=== PATIENT | female | born 1995 ===

== ENCOUNTER 2023-11-09 14:12 | Emergency (ER) | payer BC, SELFPAY ==
[2023-11-09 14:25] VITALS: BP 128/82; PULSE 100; RESP 16; TEMP 36.4; O2SAT 97
[2023-11-09] MEDS: SODIUM CHLORIDE 0.9% IV 1,000 ML 999 ML IV CONT (16:40)
[2023-11-09] MEDS: Please add drug allergy info to patient profile. 1 EACH XX (16:44)
[2023-11-09 16:50] LABS: Basophils Absolute Auto 0.1 K/mm3 (0.0-0.1); Basophils Percent Auto 0.6 % (0.2-1.2); Eosinophils Absolute Auto 0.6 K/mm3 (0-0.3); Eosinophils Percent Auto 7.1 % (0-4.4); Hematocrit 37.1 % (37.0-47.0); Immature Granulocyte Absolute 0.02 K/mm3 (0.00-0.031); Immature Granulocyte Percent A 0.2 % (0-0.5); Lymphocytes Percent Auto 24.6 % (18.3-44.2); Mean Corpuscular HGB Conc 32.3 g/dl (32-36); Mean Corpuscular Hemoglobin 28.9 pg (26-34); Mean Corpuscular Volume 89.4 fl (80-100); Mean Platelet Volume 9.9 fl (7.4-10.4); Monocytes Absolute Auto 0.7 K/mm3 (0.1-0.6); Neutrophils Absolute Auto 4.8 K/mm3 (1.3-6.7); Neutrophils Percent Auto 59.5 % (45.5-73.1); Platelet Count Result 272 k/mm3 (150-375); Red Blood Count 4.15 M/mm3 (4.2-5.4); Red Cell Distribution Width 12.4 % (11.5-14.5); White Blood Count 8.1 K/mm3 (4.5-10.0)
[2023-11-09 17:00] LABS: Alanine Aminotransferase 57 U/L (6-35); Albumin Level 4.2 g/dL (3.5-5.1); Alkaline Phosphatase 77 U/L (38-126); Anion Gap 5 mmol/L (8-16); Aspartate Amino Transferase 34 U/L (14-36); Bilirubin,Total 0.3 mg/dL (0.2-1.3); Blood Urea Nitrogen 13 mg/dL (7-17); Calcium 9.4 mg/dL (8.4-10.2); Carbon Dioxide 26 mmol/L (22-30); Chloride 107 mmol/L (98-107); Estimated CRCL calculation 128 ml/min; Estimated Glomerular Filt Rate > 60; Glucose 90 mg/dL (65-110); Potassium 3.7 mmol/L (3.4-5.0); Sodium 138 mmol/L (137-145)
--- NOTE | 2023-11-09 17:32 | ED.WEAKNESS ---
HPI - Weakness General Chief complaint: Weakness Stated complaint: low BP Time Seen by Provider: 11/09/23 16:02 History of Present Illness HPI Narrative: Patient is a 28-year-old female who presents ER with lightheadedness and weakness. Ongoing since last night. Gets dizzy when she stands up. Reports normal eating and drinking. No nausea or vomiting. No diarrhea. Denies fevers chills or sweats. 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 Symptoms are better if she lays down and naps. Related Data Allergies Allergy/AdvReac Type Severity Reaction Status Date / Time No Known Allergies Allergy Verified 11/09/23 16:43 Review of Systems Review of Systems: All systems reviewed & are unremarkable except as noted in HPI and below Constitutional: Constitutional: Denies chills, Reports fatigue and Denies fever(s) ENT: Reports system reviewed and no additional complaints, except as documented Cardiovascular: Cardiovascular: Reports no additional cardiovascular complaints Respiratory: Respiratory: Reports no additional respiratory complaints Gastrointestinal: Gastrointestinal: Reports no additional gastrointestinal complaints Integumentary/Breasts: Skin/Breast: Reports system reviewed and no additional complaints, except as docu PMFSH Past Medical History Medical History (Updated 11/09/23 @ 18:07 by Gallito Reyes MD) Healthy female adult Surgical History Surgical History (Updated 11/09/23 @ 17:34 by Gallito Reyes MD) No history of previous surgery Exam Narrative: GENERAL: Well-appearing, well-nourished, and in no acute distress. HEAD: Normocephalic, atraumatic. EYES: PERRL and EOMI. ENT: Mucous membranes moist. CHEST: Clear to auscultation. No respiratory distress. HEART: Regular rate and rhythm. Normal peripheral pulses. ABDOMEN: Soft, nontender, nondistended. EXTREMITIES: Normal range of motion. No edema. SKIN: Warm, dry, no rash. NEURO: Alert and oriented x3. PSYCH: Normal mood and affect. Course Vital Signs Vital signs: Vital Signs Temperature 97.5 F L 11/09/23 14:25 Pulse Rate 100 11/09/23 14:25 Respiratory Rate 16 11/09/23 14:25 Blood Pressure 128/82 11/09/23 14:25 Pulse Oximetry 97 11/09/23 14:25 Oxygen Delivery Room Air 11/09/23 14:25 Temperature 97.5 F L 11/09/23 14:25 Pulse Rate 100 11/09/23 14:25 Respiratory Rate 16 11/09/23 14:25 Blood Pressure 128/82 11/09/23 14:25 Pulse Oximetry 97 11/09/23 14:25 Oxygen Delivery Room Air 11/09/23 14:25 MDM - Weakness Lab Data 11/09/23 16:42 11/09/23 16:42 Labs: Lab Results 11/09/23 11/09/23 11/09/23 Range/Units 16:42 16:52 17:34 WBC 8.1 (4.5-10.0) K/mm3 RBC 4.15 L (4.2-5.4) M/mm3 Hgb 12.0 (12.0-15.0) g/dL Hct 37.1 (37.0-47.0) % MCV 89.4 (80-100) fl MCH 28.9 (26-34) pg MCHC 32.3 (32-36) g/dl RDW 12.4 (11.5-14.5) % Plt Count 272 (150-375) k/mm3 MPV 9.9 (7.4-10.4) fl Immature Gran % (Auto) 0.2 (0-0.5) % Neut % (Auto) 59.5 (45.5-73.1) % Lymph % (Auto) 24.6 (18.3-44.2) % [place] % (Auto) 8.0 (2.6-8.5) % Eos % (Auto) 7.1 H (0-4.4) % Baso % (Auto) 0.6 (0.2-1.2) % Lymph # (Auto) 2.00 (0.9-3.2) K/mm3 [place] # (Auto) 0.7 H (0.1-0.6) K/mm3 Eos # (Auto) 0.6 H (0-0.3) K/mm3 Baso # (Auto) 0.1 (0.0-0.1) K/mm3 Abs Immat Gran (auto) 0.02 (0.00-0.031) K/mm3 Absolute Neuts (auto) 4.8 (1.3-6.7) K/mm3 Absolute Nucleated RBC 0.0 (0.0-0.012) K/mm3 Nucleated RBC % 0.0 (0.0-0.2) % Sodium 138 (137-145) mmol/L Potassium 3.7 (3.4-5.0) mmol/L Chloride 107 (98-107) mmol/L Carbon Dioxide 26 (22-30) mmol/L Anion Gap 5 L (8-16) mmol/L BUN 13 (7-17) mg/dL Creatinine 0.50 L (0.7-1.0) mg/dL Estim Creat Clear Calc 128 ml/min Estimated GFR > 60 (59 - ) Glucose 90 (65-110) mg/dL Calcium
[2023-11-09 17:51] LABS: Appearance Urine Clear (Clear); Bacteria Urine None Seen /hpf; Bilirubin Urine Negative (Negative); Blood Urine Negative (Negative); Color Urine Yellow (Yellow); Glucose Urine UA Negative (Negative); Ketones Urine Negative (Negative); Leukocyte Esterase Ur 2+ LEU/UL (Negative); Nitrate Urine Negative (Negative); Non Pathogenic Casts 0-2; Protein Urine Negative (Negative); RBC Urine 0-2 /hpf (0-2); Specific Grav Ur 1.024 (1.001-1.035); Squamous Epithelial Cell Urine Few /hpf (Few); Urobilinogen Urine 0.2 mg/dL (<2.0); pH Urine 6.5 (5.0-9.0)
[2023-11-09 17:53] LABS: Add Urine Microscopic? YES
[2023-11-09 17:57] LABS: Influenza A QL RT-PCR Negative (Negative); Influenza B QL RT-PCR Negative (Negative); RSV RNA, RT-PCR Negative (Negative); SARS-CoV-2 RNA PCR Negative (Negative)
[2023-11-09 18:24] VITALS: BP 128/64; PULSE 78; RESP 16; O2SAT 99
== END 2023-11-09 18:24 | disposition home or self-care (01) ==
PROVIDERS: Emergency Provider Emergency Medicine
DX: N39.0 Urinary tract infection, site not specified (principal); Z20.822 Contact with and (suspected) exposure to COVID-19
CPT/HCPCS: 36415; 80053; 81001; 81025; 85025; 87086; 87637; 96360; 99283; J7030

== ENCOUNTER 2024-04-27 14:45 | Outpatient (RCR) | payer BC, SELFPAY ==
[2024-04-27 16:29] LABS: Hematocrit 32.8 % (37.0-47.0); Hemoglobin 11.3 g/dL (12.0-15.0)
[2024-04-27 16:41] LABS: Glucose 1 Hour PP 50gm Dose 148 mg/dL
[2024-04-27 18:33] LABS: Rapid Plasma Reagin Non-Reactive (NonReactive)
[2024-04-27 22:06] LABS: HIV 1/2 Ab P24 Ag Result Negative (Negative)
[2024-04-28] MEDS: RHO(D) IMMUNE GLOBULIN 300 MCG/2 ML SYRINGE IM (17:31)
== END 2024-07-26 23:59 | disposition home or self-care (01) ==
LOC: ANHLAB 14:45
PROVIDERS: Visit Provider Obstetrics & Gynecology
DX: Z36.89 Encounter for other specified antenatal screening (principal); Z29.13 Encounter for prophylactic Rho(D) immune globulin
CPT/HCPCS: 36415; 82947; 85014; 85018; 85461; 86592; 86703; 86850; 86900; 86901; 90384; 96372; G0432; J2790

== ENCOUNTER 2024-07-24 05:54 | Inpatient (IN) | payer BC, SELFPAY ==
[2024-07-24] VITALS (67 sets, daily range): BP systolic 81–140; BP diastolic 48–122; PULSE 53–109; RESP 18; TEMP 36.4–37.2; O2SAT 82–99; BMI 29.7
[2024-07-24 06:44] LABS: Basophils Percent Auto 0.4 % (0.2-1.2); Eosinophils Absolute Auto 0.2 K/mm3 (0-0.3); Eosinophils Percent Auto 3.2 % (0-4.4); Hemoglobin 12.6 g/dL (12.0-15.0); Immature Granulocyte Absolute 0.03 K/mm3 (0.00-0.031); Immature Granulocyte Percent A 0.4 % (0-0.5); Lymphocytes Absolute Auto 1.83 K/mm3 (0.9-3.2); Lymphocytes Percent Auto 25.1 % (18.3-44.2); Mean Corpuscular HGB Conc 34.1 g/dl (32-36); Mean Corpuscular Hemoglobin 31.7 pg (26-34); Mean Platelet Volume 10.8 fl (7.4-10.4); Monocytes Absolute Auto 0.4 K/mm3 (0.1-0.6); Monocytes Percent Auto 5.6 % (2.6-8.5); Neutrophils Absolute Auto 4.8 K/mm3 (1.3-6.7); Neutrophils Percent Auto 65.3 % (45.5-73.1); Platelet Count Result 258 k/mm3 (150-375); Red Blood Count 3.98 M/mm3 (4.2-5.4); Red Cell Distribution Width 13.1 % (11.5-14.5); White Blood Count 7.3 K/mm3 (4.5-10.0)
[2024-07-24] MEDS: miSOPROStol 25 MCG TABLET 50 MCG BUCCAL ×2 (06:55→12:16)
--- NOTE | 2024-07-24 07:01 | LDADM ---
This patient, Mercedes Crowell, was admitted to Labor/Delivery/Recovery 106 on 07/24/24 at 05:54. Plans for labor, pain management and were discussed with patient. Patient/family oriented to hospital policies and general routines including ID bracelet, bed and alarms, visiting hours, pain management, procedures, bathroom and other care routines, personal items, smoking policy, room service/diet and guest tray routines, infant security routines, and visiting hours. Patient/Family are encouraged to report perceived risks to care and to ask questions if they do not understand what they are told or what they should do. See [facility] for further documentation.
[2024-07-24 07:36] LABS: HIV 1/2 Ab P24 Ag Result Negative (Negative)
[2024-07-24 07:40] LABS: Hepatitis B Surface Antigen Negative (Negative)
[2024-07-24 07:41] LABS: Rapid Plasma Reagin Non-Reactive (NonReactive)
[2024-07-24] MEDS: LACTATED RINGERS 1,000 ML 125 ML IV CONT ×2 (11:49→19:05)
--- NOTE | 2024-07-24 13:09 | PM.IMHP ---
H&P: HPI History of Present Illness Date/Time: 07/24/24 08:09 Chief Complaint: elective induction of labor Narrative: Patient is a 29 year old at 39 weeks who presents for elective induction of labor. has been complicated by hx of preeclampsia in her prior . Blood pressures have been normal this . She denies strong contractions, leakage of fluid or vaginal bleeding. She reports good movement. Review of Systems Review of Systems: All systems reviewed & are unremarkable except as noted in HPI and below PMFSH Past Medical History Medical History Healthy female adult Surgical History Surgical History No history of previous surgery Family History Family History Mother Hypothyroid Hypertension Social History Social History Smoking status: Never smoker Substance use: never Do You Feel Safe in your Home?: Yes Lack of Transportation: No Lack of Food: Never True Current Housing: I Have Housing Concerned About Future Housing: No Difficulty Paying Gas/Electric Bills: No Difficulty Paying for Meds: No Currently Unemployed: No Education: Bachelor's Degree Difficulty w/ Childcare or Family Care: No Spiritual care concerns: No Meds Home Medications and Allergies Home Medications Medication Instructions Recorded Confirmed Type aspirin 81 mg tablet 81 mg PO DAILY 06/29/24 07/24/24 History vits no.126-ferrous fum 1 tablet PO DAILY 06/29/24 07/24/24 History 28 mg iron-folic acid 800 mcg tablet (Classic ) Allergies Allergy/AdvReac Type Severity Reaction Status Date / Time No Known Allergies Allergy Verified 07/24/24 06:57 Vital Signs Vital Signs - 24 hr 07/24/24 06:25 07/24/24 06:30 07/24/24 06:45 Temperature Pulse Rate 101 H 105 H 63 Blood Pressure 117/74 114/83 81/48 L Oxygen Delivery 07/24/24 07:00 07/24/24 07:30 07/24/24 07:45 Temperature Pulse Rate 90 79 76 Blood Pressure 117/67 110/78 113/74 Oxygen Delivery 07/24/24 08:00 07/24/24 08:15 07/24/24 08:30 Temperature Pulse Rate 69 85 96 Blood Pressure 110/67 110/73 109/84 Oxygen Delivery 07/24/24 08:45 07/24/24 09:00 07/24/24 10:10 Temperature 97.6 F Pulse Rate 84 69 85 Blood Pressure 118/77 117/64 107/83 Oxygen Delivery 07/24/24 12:16 07/24/24 06:59 Temperature Pulse Rate 72 Blood Pressure 109/63 Oxygen Delivery Room Air Exam Const: General: comfortable and no acute distress HENMT: Mouth: Yes moist mucous membranes Eyes: General: appearance normal, both eyes and all related structures Resp: Effort & Inspection: normal respiratory effort Cardio: Rate: regular rate Skin: General skin exam: normal color Extrem: General: normal to inspection Psych: Mental Status: mental status grossly normal H&P: Results Labs Labs: Short CBC 07/24/24 Range/Units 06:12 WBC 7.3 (4.5-10.0) K/mm3 Hgb 12.6 (12.0-15.0) g/dL Hct 37.0 (37.0-47.0) % Plt Count 258 (150-375) k/mm3 Assessment and Plan Assessment and plan (1) Encounter for elective induction of labor: Code(s): Z34.90 - Encounter for supervision of normal , unspecified, unspecified trimester Status: Acute Assessment and Plan: - FHR category I - cytotec for cervical ripening
[2024-07-24] MEDS: OXYTOCIN 30 UNITS/NS 500 ML 30 UNITS/500 ML BAG IV CONT (16:37)
[2024-07-24] MEDS: fentaNYL CITRATE INJ (*CRX) 100 MCG/2 ML VIAL 50 MCG IV PUSH (17:58)
--- NOTE | 2024-07-24 18:03 | PM.OBPNLAB ---
Pain Control Date/time seen: 07/24/24 18:03 Pain control: tolerating well (received fentanyl prior to AROM) Pelvic Exam Dilation (cm): 4 Effacement (%): 70 station: -1 Amniotic membrane status: Ruptured (clear fluid) Contractions Monitor mode: External Contraction frequency: 3 Status status: Category l Assessment and Plan Assessment: induction ongoing Plan: continuous present management
--- NOTE | 2024-07-24 19:13 | P.PNAN_ITS ---
Anes - Initial Pre Proc Eval Date/Time: 07/24/24 19:13 Surgeon: Timothy Baker MD Pre Op Diagnosis: IOL Patient Data Age: 29 Gender: F Height: 1.65 m Weight: 81 kg Last Vital Signs Temp 36.6 C 07/24/24 18:25 Pulse 85 07/24/24 19:12 BP 133/85 07/24/24 19:12 Pulse Ox 98 07/24/24 19:11 O2 Del Method Room Air 07/24/24 06:59 Allergies Allergy/AdvReac Type Severity Reaction Status Date / Time No Known Allergies Allergy Verified 07/24/24 06:57 Home Medications Medication Instructions Recorded Confirmed Type aspirin 81 mg tablet 81 mg PO DAILY 06/29/24 07/24/24 History vits no.126-ferrous fum 1 tablet PO DAILY 06/29/24 07/24/24 History 28 mg iron-folic acid 800 mcg tablet (Classic ) Laboratory Tests 07/24/24 06:12 WBC 7.3 K/mm3 (4.5-10.0) RBC 3.98 L M/mm3 (4.2-5.4) Hgb 12.6 g/dL (12.0-15.0) Hct 37.0 % (37.0-47.0) MCV 93.0 fl (80-100) MCH 31.7 pg (26-34) MCHC 34.1 g/dl (32-36) RDW 13.1 % (11.5-14.5) Plt Count 258 k/mm3 (150-375) MPV 10.8 H fl (7.4-10.4) Immature Gran % (Auto) 0.4 % (0-0.5) Neut % (Auto) 65.3 % (45.5-73.1) Lymph % (Auto) 25.1 % (18.3-44.2) [place] % (Auto) 5.6 % (2.6-8.5) Eos % (Auto) 3.2 % (0-4.4) Baso % (Auto) 0.4 % (0.2-1.2) Lymph # (Auto) 1.83 K/mm3 (0.9-3.2) [place] # (Auto) 0.4 K/mm3 (0.1-0.6) Eos # (Auto) 0.2 K/mm3 (0-0.3) Baso # (Auto) 0.0 K/mm3 (0.0-0.1) Abs Immat Gran (auto) 0.03 K/mm3 (0.00-0.031) Absolute Neuts (auto) 4.8 K/mm3 (1.3-6.7) Absolute Nucleated RBC 0.000 K/mm3 (0.0-0.012) Nucleated RBC % 0.0 % (0.0-0.2) RPR Non-reactive (NonReactive) Hep Bs Antigen Negative (Negative) HIV 1&2 Ab/P24 Ag 4thGn Negative (Negative) Blood Type B Negative Antibody Screen Negative Patient hx anesthesia problems: none Family hx anesthesia problems: none Results Review: All pre-operative results and documents have been reviewed as part of the pre- operative evaluation. [facility] Past Medical History Medical History Healthy female adult Surgical History Surgical History No history of previous surgery Family History Family History Mother Hypothyroid Hypertension Social History Social History Smoking status: Never smoker Substance use: never Do You Feel Safe in your Home?: Yes Lack of Transportation: No Lack of Food: Never True Current Housing: I Have Housing Concerned About Future Housing: No Difficulty Paying Gas/Electric Bills: No Difficulty Paying for Meds: No Currently Unemployed: No Education: Bachelor's Degree Difficulty w/ Childcare or Family Care: No Spiritual care concerns: No Anes - Eval Final PreProcedure Day of Procedure 07/24/24 19:13 Patient weight: overweight Heart: regular rate and rhythm Neurological: alert and oriented ASA classification: II Emergent: no Anesthetic plan: proceed Anesthesia type and monitoring: regional epidural and standard monitoring Results Review: All pre-operative results and documents have been reviewed as part of the pre- operative evaluation. Informed Consent: The patient's anesthetic plan and its attendant risks and benefits were discussed with the patient/family/POA. Questions were solicited and answers provided to the satisfaction of the patient/family/POA.
--- NOTE | 2024-07-24 20:18 | PM.OBPRVD ---
OB - Vaginal Delivery Note Procedure Delivery date: 07/24/24 Events: Elective Induction of Labor Induction method: Per Misoprostol Protocol Delivery augmentation: Rupture of Membranes and Pitocin Delivery monitor: External FHT and External Uterine Route of delivery: Episiotomy description: None Laceration Description: Perineal - 1st Degree Delivery repair: vicryl Specimen: No Quantitative Blood Loss (ml): 50 Anesthesia type: Epidural Disposition: Floor Complications: No immediate complications Narrative: See H&P and notes for details on patient's admission and labor. She progressed to complete cervical dilation and at the appropriate time began pushing. With adequate expulsive efforts by the mother, the baby's head was delivered without difficulty. Nuchal cord was present and was easily reduced. The baby's right shoulder was anterior and delivered under the pubic symphysis without difficulty. The posterior shoulder and the rest of the baby delivered without difficulty. The umbilical cord was doubly clamped and cut after 60 seconds of delayed cord clamping. Care of the infant was then assumed by the nursing staff. [place] Baby Date of : 07/24/24 Time of : 20:04 Gestational Age by Date: 39 Infant gender: Female presentation: vertex position: Left Occiput Anterior Placenta delivery description: Expressed Cord Vessel Description: 3 Vessels, Nuchal Cord and Delayed Cord Clamping
[2024-07-24] MEDS: OXYTOCIN 30 UNITS/NS 500 ML 30 UNITS/500 ML BAG 125 UNITS IV CONT (20:52)
[2024-07-24] MEDS: WITCH HAZEL 40 PADS 1 PAD TOPICAL (22:21)
[2024-07-24] MEDS: BENZOCAINE 20% AER SPR (*SP) 56 GM CAN 1 SPRAY TOPICAL (22:21)
[2024-07-24] MEDS: IBUPROFEN 600 MG TABLET PO (22:58)
[2024-07-25 04:50] VITALS: BP 104/68; PULSE 72; RESP 18; TEMP 37.1; O2SAT 97
[2024-07-25 05:01] LABS: Hematocrit 37.3 % (37.0-47.0); Hemoglobin 12.7 g/dL (12.0-15.0)
[2024-07-25 07:38] VITALS: BP 116/73; PULSE 58; RESP 14; TEMP 36.3; O2SAT 98
[2024-07-25 08:00] VITALS: PULSE 85; RESP 14; O2SAT 97
[2024-07-25] MEDS: IBUPROFEN 600 MG TABLET PO ×3 (08:30→21:04)
[2024-07-25] MEDS: MULTIVIT/MIN/PREN/FOL AC/IRON TABLET 1 TAB PO (08:31)
--- NOTE | 2024-07-25 08:58 | PC.NURSE ---
On 07/25/24, the student, Trang Vizcaino, provided care and completed [facility] documentation on this patient. I have reviewed the student's documentation and agree with the findings.
[2024-07-25 11:35] VITALS: BP 115/68; PULSE 85; RESP 14; TEMP 36.2; O2SAT 97
--- NOTE | 2024-07-25 12:50 | PC.NURSE ---
[id number] Mother called out with questions regarding using the hospital breast pump. She had already breastfed baby for 10 mins and now plans to pump and bottle. Mother had requested the pump last night, she wanted to breast and pump/bottle feed. Instructions were regiven on cleaning, care, usage, that there should be no pain, pumping schedule for milk production, collection, and storage of human milk. Patient was assessed for correct placement, flange size, to pump for comfort and nipple stretching/stimulation for adequate milk production. Mother was also given instructions on paced bottle feeding. Parents are encouraged to record the pumping schedule on the feeding sheet.?Mother voiced understanding of the education shared along with mom/baby guide and the pump measurement, flange fit handout for additional resource information. Reported to the Primary RN. [id number] Mother called out, she had just finished for 20 mins and went to use the breast pump and it was not working, she had removed the white flaps on the inside of the flange set up, RN had gotten mother replacements and advised mother to clean the parts and pieces and reuse. Mother inquired about an insurance pump to take home with her later tonight upon discharge but she is going to call her insurance company first and make sure that it would be covered. Reported to the Primary RN.
--- NOTE | 2024-07-25 13:15 | P.PNOB_ITS ---
OB - PN: Subj Subjective Date/time seen: 07/25/24 13:15 Interval history: PPD#1 doing well, no issues Pain well controlled Working on Voiding without issue Desires discharge today OB - PN: Obj Data Labs 07/25/24 04:38 Labs: Laboratory Results - last 24 hr 07/25/24 07/25/24 04:38 04:41 Hgb 12.7 Hct 37.3 Blood Type B Negative Antibody Screen Negative Screen Positive H Baby's Blood Type Ab pos Baby's MEREA Positive OB - PN A/P Assessment and Plan (1) (spontaneous vaginal delivery): Code(s): O80 - Encounter for full-term uncomplicated delivery Status: Acute Plan day: 1 Plan: routine care and discharge home Time Spent With Patient Time: Total time spent is greater than 50% in coordination of care (as documented) at patient's floor/unit and/or counseling patient: Review of Systems Review of Systems: All systems reviewed & are unremarkable except as noted in HPI and below Exam Const: General: comfortable and no acute distress Orientation/consciousne ss: patient oriented x3 Resp: Effort & Inspection: normal respiratory effort
--- NOTE | 2024-07-25 13:17 | PM.OBDSVD ---
DS: Admitting Diagnosis Discharge Date 07/25/24 Admitting Diagnosis elective induction of labor DS: Discharge Diagnosis Discharge Diagnosis (1) (spontaneous vaginal delivery): Code(s): O80 - Encounter for full-term uncomplicated delivery Status: Acute OB - DS: Summary OB Procedures : None OB Procedures Intrapartum: Spontaneous Vag Delivery OB Procedures: : None Peripartum Data Laceration Description: Perineal - 1st Degree Episiotomy description: None Time Spent with Patient Time attestation: Total time spent providing and/or coordinating discharge services: DS: Data Data Completed and Pending Labs on day of discharge: Labs from last 24 hours 07/25/24 07/25/24 04:41 04:38 Hgb 12.7 Hct 37.3 Blood Type B Negative Antibody Screen Negative Screen Positive H Baby's Blood Type Ab pos Baby's MEERA Positive KB Hemoglobin Pending Doses of RhIg Required Pending Discharge Plan Discharge Attending physician on discharge: Timothy Baker Discharging Clinician: Timothy Baker Patient Disposition: Home, Self-Care Activity: may shower, as tolerated and pelvic rest Diet: as tolerated Patient Instructions: Antibiotic Form Stand Alone Forms: General Discharge Information Follow-up/Referrals: Timothy Baker MD [Physician] - 4 Weeks Discharge Medications: New docusate sodium 100 mg Capsule 100 mg PO BID PRN (Reason: Constipation) Qty: 60 0RF ibuprofen 600 mg Tablet 600 mg PO Q6H PRN (Reason: Cramping) Qty: 30 0RF Continued Classic 28 mg iron- 800 mcg Tablet 1 tablet PO DAILY Discontinued aspirin 81 mg Tablet 81 mg PO DAILY Date of admission: 07/24/24 05:54 Primary Care Provider: PHYSICIAN NOT ON STAFF,NONSTAFF Admitting Provider: Timothy Baker Attending physician on admission: Timothy Baker Condition: Stable
[2024-07-25] MEDS: RHO(D) IMMUNE GLOBULIN 300 MCG/2 ML SYRINGE IM (16:35)
[2024-07-25 19:15] VITALS: BP 114/75; PULSE 73; RESP 16; TEMP 36.9; O2SAT 98
== END 2024-07-25 21:40 | disposition home or self-care (01) | DRG 807 ==
LOC: ANHLDR 06:01 → ANHOB2 23:07
PROVIDERS: Admitting Provider Obstetrics & Gynecology; Visit Provider Obstetrics & Gynecology
DX: O69.81X0 Labor and delivery complicated by cord around neck, without compression, not applicable or unspecified (principal); Z37.0 Single live birth; Z3A.39 39 weeks gestation of pregnancy; O70.0 First degree perineal laceration during delivery
CPT/HCPCS: 36415; 85014; 85018; 85025; 85460; 85461; 86592; 86703; 86850; 86900; 86901; 87340; 90384; A9270; G0432; J2590; J2790; J2795; J3010; J7120